=== PATIENT | female | born 1980 | race Caucasian/White ===

== ENCOUNTER 2024-03-11 02:48 | Emergency (ER) | payer OTHER ==
[~2024-03-11] VITALS: Ht 160 cm; Wt 57.7 kg
[2024-03-11 02:50] VITALS: TEMP 97.7
[2024-03-11 03:42] LABS: HEMATOCRIT 35.2 % (36-46); HEMOGLOBIN 11.8 g/dL (12.0-16.0); MEAN CORPUSCULAR HEMOGLOBIN 29.3 pg (26.0-34.0); MEAN CORPUSCULAR HGB CONC 33.5 G/dL (31.0-37.0); MEAN CORPUSCULAR VOLUME 87 fL (80-100); PLATELET COUNT (AUTO) 256 K/uL (150-450); RED BLOOD CELL COUNT(AUTO) 4.03 MIL/uL (4.00-5.20); RED CELL DISTRIBUTION WIDTH 13.8 % (11.5-14.5); WHITE BLOOD COUNT (AUTO) 7.8 K/uL (4.5-11.0)
[2024-03-11 03:47] LABS: BAND NEUTROPHILS % (MANUAL) 0 % (0-5)
[2024-03-11 03:48] LABS: ANION GAP 1 mmol/L (8-16); CARBON DIOXIDE 31 mmol/L (22-29); CHLORIDE 103 mmol/L (98-107); CREATININE 0.68 mg/dL (0.60-1.30); EOSINOPHILS % (MANUAL) 3 % (1-6); GLOMERULAR FILTR. RATE CALC > 60 mL/min (>60); GLUCOSE,RANDOM 98 mg/dL (70-110); LYMPHOCYTES % (MANUAL) 30 % (22-44); MONOCYTES % (MANUAL) 10 % (2-9); SEGMENTED NEUTROPHILS % 57 % (40-70); SODIUM SERUM 135 mmol/L (136-145); TOTAL CELLS COUNTED 100; UREA NITROGEN, BLOOD 11 mg/dL (7-18)
[2024-03-11 03:55] LABS: AMYLASE 65 U/L (25-115); HCG,QUANTITATIVE < 1 mIU/mL (0-6); LIPASE 32 U/L (16-77)
[2024-03-11 04:36] LABS: APPEARANCE,URINE CLEAR (CLEAR); BILIRUBIN,URINE NEGATIVE (NEGATIVE); COLOR,URINE YELLOW (YELLOW); GLUCOSE, URINE (UA) NEGATIVE (NEGATIVE); KETONES,URINE NEGATIVE (NEGATIVE); LEUKOCYTE ESTERASE ,URINE SMALL (NEGATIVE); NITRATE,URINE NEGATIVE (NEGATIVE); OCCULT BLOOD,URINE NEGATIVE (NEGATIVE); PROTEIN,URINE 30-70 mg/dL (NEGATIVE); SPECIFIC GRAVITIY, URINE 1.031 (1.003-1.030); UROBILINOGEN,URINE <=1.0 mg/dL (<=1.0)
[2024-03-11 04:52] LABS: BACTERIA,URINE Few /HPF (None Seen); RBC,URINE 0-2 /HPF (0-2)
[2024-03-11] MEDS ORDERED: POLY17PO62 PO (05:32)
[2024-03-11] MEDS ORDERED: ACET-66 PO (07:23)
[2024-03-11] MEDS ORDERED: POLY119P3 PO (07:23)
[2024-03-11 07:55] VITALS: BP 139/84; PULSE 91; RESP 20; O2SAT 99
== END 2024-03-11 08:23 | disposition home or self-care (01) ==
LOC: EMS 02:50
DX: K59.00 Constipation, unspecified (principal); R10.9 Unspecified abdominal pain; J45.909 Unspecified asthma, uncomplicated
CPT/HCPCS: 74022; 76705; 80048; 81001; 82150; 83690; 84702; 85025; 93005; 99285

== ENCOUNTER 2025-03-24 20:23 | Emergency (ER) | payer OTHER ==
[~2025-03-24] VITALS: Ht 160 cm; Wt 79.5 kg
[~2025-03-24 20:23] MED LIST: ACET-66 PO; POLY119P3 PO; POLY17PO62 PO
[2025-03-24 20:26] VITALS: TEMP 98.1
[2025-03-24 21:28] LABS: HCG,QUAL URINE NEGATIVE (NEGATIVE)
[2025-03-24 21:31] LABS: APPEARANCE,URINE CLEAR (CLEAR); GLUCOSE, URINE (UA) NEGATIVE (NEGATIVE); LEUKOCYTE ESTERASE ,URINE SMALL (NEGATIVE); NITRATE,URINE NEGATIVE (NEGATIVE); OCCULT BLOOD,URINE TRACE (NEGATIVE); SPECIFIC GRAVITIY, URINE 1.018 (1.003-1.030)
[2025-03-24 22:20] LABS: SQUAMOUS EPITHELIAL CELL,UR Few /LPF (None Seen)
[2025-03-24 22:47] LABS: PLATELET COUNT (AUTO) 188 K/uL (150-450); RED BLOOD CELL COUNT(AUTO) 4.35 MIL/uL (4.00-5.20); RED CELL DISTRIBUTION WIDTH 14.7 % (11.5-14.5); WHITE BLOOD COUNT (AUTO) 8.3 K/uL (4.5-11.0)
[2025-03-24 22:59] LABS: CALCIUM, TOTAL 8.9 mg/dL (8.8-10.5); CREATININE 0.59 mg/dL (0.60-1.30); GLOMERULAR FILTR. RATE CALC > 60 mL/min (>60); GLUCOSE,RANDOM 94 mg/dL (70-110); SODIUM SERUM 137 mmol/L (136-145); UREA NITROGEN, BLOOD 22 mg/dL (7-18)
[2025-03-24] MEDS ORDERED: TRAM50TA5 PO (23:03)
[2025-03-24] MEDS ORDERED: CEPH-558 PO (23:03)
[2025-03-24 23:11] VITALS: BP 115/71; PULSE 82; RESP 16; O2SAT 100
== END 2025-03-24 23:12 | disposition home or self-care (01) ==
LOC: EMS 20:23
DX: N63.0 Unspecified lump in unspecified breast (principal); J45.909 Unspecified asthma, uncomplicated
CPT/HCPCS: 80048; 81001; 84703; 85025; 99283